=== PATIENT | female | born 1980 | race African-American/Black ===

== ENCOUNTER 2018-05-26 18:18 | Emergency (ER) | payer BC, MEDICAID, OTHER ==
[2018-05-26] MEDS ORDERED: FAMOTIDINE INJ/PF 20 MG/2 ML SDV IV ONE (19:38)
[2018-05-26] MEDS ORDERED: METHYLPREDNISOLONE INJ 125 MG/2 ML SDV IV ONE (19:38)
[2018-05-26] MEDS ORDERED: DIPHENHYDRAMINE HCL 50 MG/ML VIAL IV ONE (19:38)
[2018-05-26] MEDS ORDERED: CEFTRIAXONE 1 GM/D5W RTU 50 ML IV ONE (19:39)
--- NOTE | 2018-05-26 19:48 | ER Document Report ---
HPI - HPI Pain Level: Denies Notes: Patient is a 37-year-old female who presents to the ED complaining of allergic reaction to a wasp sting to her right arm. Patient states that she was stung 2 days ago. Patient states that the redness has slowly been progressing. She did try Benadryl p.o. with minimal relief. Patient states that she has some associated pruritus without any pain. Patient has not noticed any red streaks or purulent discharge. She has not noticed any abscess. Denies any drug allergies or IV drug use. She has not had any swelling of her lip/tongue/ throat or any drooling/hoarseness. Denies any headache, fever, neck pain, changes in vision/speech/mentation/hearing, URI, sore throat, chest pain, palpitations, syncope, cough, shortness of breath, wheeze, dyspnea, abdominal pain, nausea/vomiting/diarrhea, urinary retention, dysuria, hematuria, loss of control of bowel or bladder, numbness/tingling, muscle paralysis/weakness. - ROS Systems Reviewed and Negative: Yes All other systems reviewed and negative - REPRODUCTIVE LMP: 04/27/18 Past Medical History - Social History Smoking Status: Never Smoker Family History: Reviewed & Not Pertinent Vertical Provider Document - CONSTITUTIONAL Agree With Documented VS: Yes Notes: PHYSICAL EXAMINATION: GENERAL: Well-appearing, well-nourished and in no acute distress. A&Ox4. Answers questions appropriately. Moves comfortably w/o notable distress HEAD: Atraumatic, normocephalic. EYES: Pupils equal round and reactive to light, extraocular movements intact, sclera anicteric, conjunctiva are normal. ENT: EAC clear b/l. TM's intact b/l without erythema, fluid, or perforation. Nares patent and without discharge. oropharynx w/o erythema without exudates. No tonsilar hypertrophy without erythema or exudate. No palatine shift. Uvula midline. No tongue protrusion. No angioedema. No drooling, hoarseness, or airway compromise. Moist mucous membranes. No sinus tenderness. NECK: Normal range of motion, supple without lymphadenopathy. No rigidity/ meningismus. LUNGS: Breath sounds clear to auscultation bilaterally and equal. No wheezes rales or rhonchi. No retractions HEART: Regular rate and rhythm without murmurs, rubs, gallops. ABDOMEN: Soft, nontender, nondistended abdomen. No guarding, no rebound. No masses appreciated. Normal bowel sounds present. No CVA tenderness bilaterally. NEUROLOGICAL: Normal speech, normal gait. Normal sensory, motor exams. Cranial nerves grossly intact. PSYCH: Normal mood, normal affect. SKIN: macular erythemic area to the rt medial arm, large area (10cm) w/o induration, tenderness, or fluctuance. + mild warmth. - INFECTION CONTROL TRAVEL OUTSIDE OF THE [place] IN LAST 30 DAYS: No Course - Re-evaluation Re-evalutation: 05/26/18 19:[address] Schafer. We will give her Solu-Medrol, Benadryl, Pepcid, and Rocephin IV. No evidence of angioedema or airway compromise at this time. 05/26/18 20:40 Patient is an afebrile, well-hydrated, 37-year-old female who presents to the ED with an allergic localized reaction status post insect sting. Vitals are acceptable without any significant tachycardia, tachypnea, hypoxia, or hypotension. PE is otherwise unremarkable. There is no evidence of angioedema. Patient was given her medicines IV as above which did improve her symptoms. Patient states that she is feeling better in that area and is ready to go home. Erythema has improved. She is tolerating p.o. without difficulties and is nontoxic-appearing. No further labs or imaging warranted at this time based on H&P. Low suspicion for any meningitis, sepsis, peritonsillar/pharyngeal abscess, airway compromise, or other emergent systemic condition at this time. Patient is aware this condition can change from initial presentation and he needs to monitor symptoms closely. I will send her home with a prescription for Keflex. Conservative measures otherwise for symptoms. Recheck with your PCM in 2-3 days. Return to the ED with any worsening/concerning symptoms otherwise as reviewed in discharge. Patient is in agreement. - Vital Signs Vital signs: Temp Pulse Resp BP Pulse Ox 98.9 F 87 16 120/82 98 05/26/18 18:48 05/26/18 18:48 05/26/18 18:48 05/26/18 18:48 05/26/18 18:48 Discharge - Discharge Clinical Impression: Bee sting Qualifiers: Encounter type: initial encounter Injury intent: accidental or unintentional Qualified Code(s): T63.441A - Toxic effect of venom of bees, accidental ( unintentional), initial encounter Condition: Stable Disposition: HOME, SELF-CARE Instructions: Insect Sting ([facility]) Additional Instructions: Keep the skin clean Wash with soap and water Tylenol/ibuprofen if needed Benadryl/Pepcid as directed Triple antibiotic ointment daily Take medication as directed Monitor for any worsening symptoms Recheck with your PCM in 2-3 days Return to the ED with any worsening symptoms and/or development of fever, headache, chest pain, palpitations, syncope, shortness of breath, trouble breathing, abdominal pain, n/v/d, abscess, purulent discharge, red streaks, worsening swelling, or other worsening symptoms that are concerning to you. Prescriptions: Cephalexin Monohydrate [Keflex 500 mg Capsule] 500 mg PO TID #30 capsule Prednisone 20 mg PO ASDIR #18 tablet Referrals: JERED EASLEY MD [NO LOCAL MD] - 05/28/18
[2018-05-26] MEDS ORDERED: CEFTRIAXONE SODIUM 1,000 MG in DEXTROSE 5%-WATER 50 ML IV ONE (20:30)
[2018-05-26 21:22] VITALS: BP 115/71
== END 2018-05-26 21:22 | disposition home or self-care (01) ==
LOC: ER 18:18
DX: T63.461A Toxic effect of venom of wasps, accidental (unintentional), initial encounter (principal)
CPT/HCPCS: 99282; 96375; 96365; J1200; J2930; J0696; S0028